=== PATIENT | female | born 1960 | race Caucasian/White ===

== ENCOUNTER → 2017-06-09 | Outpatient (CLI) | payer BC ==
[~2017-06-09] MED LIST: ANAS1TAB19 PO; ASCA500 PO; ATV1 PO; ESCI1TAB10 PO; GABA-112 PO; GLUC10007 PO; Levothyroxine PO; MULT-506 PO; OMEG10007 PO; PANT40TA PO; VTMB12UNK PO; [UNRECOGNIZED DRUG - SUPPLY]
== END | disposition home or self-care (01) ==
LOC: C.MAMM 14:32
PROVIDERS: ATTEND Internal Medicine Hematology & Oncology
DX: Z85.3 Personal history of malignant neoplasm of breast (principal)